=== PATIENT | female | born 1960 | race Two or more races ===

== ENCOUNTER → 2018-04-29 | Outpatient (CLI) | payer BC ==
[~2018-04-29] MED LIST: ASPI81TA86 PO; CALC-488 PO; DOCU-416 PO; HYDR-4309 PO; LORITAB; MULT-1367 PO; NITR0.4T3 SL; ONDA4TAB PO; PANT40TA65 PO; PER PO
--- NOTE | 2018-04-29 16:17 | RADIOLOGY IMAGING REPORT ---
FACILITY: [facility] PATIENT NAME: Shara Salcido : 1960 MR: [id number] V: [id number] EXAM DATE: ORDERING PHYSICIAN: [facility] TECHNOLOGIST: Location: [facility] [place] Patient: Shara Salcido : 1960 Visit/Account:[id number] Date of Sevice: 04/29/2018 Exam type: ARTERIAL LOWER EXT RIGHT History: Right leg claudication Comparison: None. Findings: Triphasic flow is seen throughout the right lower extremity arterial tree. The peak systolic velocities in the arteries of the right lower extremity are as described below in c entimeters per second. Colon Right common femoral artery 150 Right profunda femoral artery 123 Right superficial femoral artery 164 Right popliteal artery 113 Right peroneal artery 62 Right posterior tibial artery 118 Right anterior tibial artery 94 Right dorsalis pedis artery 100 IMPRESSION: 1. Normal arterial duplex scan of the right lower extremity Results were called to Isatu Edmond DNP at 04/29/2018 4:12 PM. Report Dictated By: Romana Garcia MD at 04/29/2018 4:07 PM Report E-Signed By: Romana Garcia MD at 04/29/2018 4:13 PM WSN:[email or web address]
== END ==
LOC: US 14:28
PROVIDERS: ATTEND Nurse Practitioner Family
DX: M79.604 Pain in right leg (principal)

== ENCOUNTER → 2018-04-30 | Outpatient (REF) | payer BC ==
[2018-04-30 11:38] LABS: PLATELET COUNT, AUTOMATED 219 K/uL (150-450)
== END ==
LOC: ZZSTITCHES 11:20
PROVIDERS: ATTEND Nurse Practitioner Family
DX: I73.9 Peripheral vascular disease, unspecified (principal)
CPT/HCPCS: 85025; 85379

== ENCOUNTER 2018-07-06 21:57 | Emergency (ER) | payer BC ==
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
[2018-07-06] MEDS ORDERED: KETOROLAC 60 MG/2 ML VIAL IM ONE (22:20)
[2018-07-06 22:40] VITALS: BP 128/73
--- NOTE | 2018-07-06 23:05 | RADIOLOGY IMAGING REPORT ---
FACILITY: [facility] - [place] PATIENT NAME: Shara Salcido : 1960 MR: [id number] V: [id number] EXAM DATE: ORDERING PHYSICIAN: JACKIE BAZZI TECHNOLOGIST: Location: [facility] Patient: Shara Salcido : 1960 Visit/Account:[id number] Date of Sevice: 07/06/2018 INDICATION: Right chest pain EXAM DATE: 07/06/2018 10:17 PM COMPARISON: Chest radiographs 03/15/2008. FINDINGS: PA and lateral views of the chest with 2 views of the right ribs. Mineralization is normal. No acute alignment abnormality or fracture. Lungs are well-expanded and clear. No pleural effusion or pneumo thorax. Heart size is normal. Cholecystectomy clips. IMPRESSION: No acute cardiopulmonary abnormality or right rib fracture. Report Dictated By: Bo Gil MD at 07/06/2018 10:58 PM Report E-Signed By: Bo Gil MD at 07/06/2018 11:02 PM WSN:[id number]
--- NOTE | 2018-07-06 23:06 | RADIOLOGY IMAGING REPORT ---
FACILITY: [facility] - [place] PATIENT NAME: Shara Salcido : 1960 MR: [id number] V: [id number] EXAM DATE: ORDERING PHYSICIAN: JACKIE BAZZI TECHNOLOGIST: Location: [facility] Patient: Shara Salcido : 1960 Visit/Account:[id number] Date of Sevice: 07/06/2018 INDICATION: Right chest pain EXAM DATE: 07/06/2018 10:17 PM COMPARISON: Chest radiographs 03/15/2008. FINDINGS: PA and lateral views of the chest with 2 views of the right ribs. Mineralization is normal. No acute alignment abnormality or fracture. Lungs are well-expanded and clear. No pleural effusion or pneumo thorax. Heart size is normal. Cholecystectomy clips. IMPRESSION: No acute cardiopulmonary abnormality or right rib fracture. Report Dictated By: Bo Gil MD at 07/06/2018 10:58 PM Report E-Signed By: Bo Gil MD at 07/06/2018 11:02 PM WSN:[id number]
[2018-07-06] MEDS ORDERED: traMADol 50 MG TAB TH 2 TAB/BOTTLE PO ONE (23:25)
[2018-07-06] MEDS ORDERED: LIDO700A19 TD (23:26)
[2018-07-06] MEDS ORDERED: TRAM-420 PO (23:26)
[2018-07-07] MEDS ORDERED: LIDOCAINE 5% PATCH TP SCH (09:00)
== END 2018-07-06 23:48 | disposition home or self-care (01) ==
LOC: ER 22:04
DX: R07.89 Other chest pain (principal)
CPT/HCPCS: 71046; 71100; 96372; 99283; C9399; J1885